=== PATIENT | male | born 1990 | race African-American/Black ===

== ENCOUNTER 2019-02-21 12:53 | Emergency (ER) | payer OTHER, MEDICAID ==
[~2019-02-21] VITALS: Ht 188 cm; Wt 111.0 kg
[2019-02-21 13:21] VITALS: BP 130/65
[2019-02-21] MEDS ORDERED: AZITHROMYCIN 500 MG TABLET PO ONE (15:00)
[2019-02-21] MEDS ORDERED: LIDOCAINE HCL/EPINEPHRINE 1%-EPI 1:100,000 30 ML VIAL INFIL ONE (15:00)
[2019-02-21] MEDS ORDERED: CEFTRIAXONE SODIUM 250 MG/VIAL IM ONE (15:00)
[2019-02-21] MEDS ORDERED: LIDOCAINE HCL/EPINEPHRINE 1%-EPI 1:100,000 20 ML VIAL INFIL NR (15:15)
[2019-02-21 15:35] LABS: CLARITY URINE CLEAR (CLEAR); COLOR URINE YELLOW (YELLOW); KETONES URINE NEGATIVE (NEGATIVE); LEUKOCYTE ESTERASE URINE 2+ (NEGATIVE); NITRITE URINE NEGATIVE (NEGATIVE); OCCULT BLOOD URINE NEGATIVE (NEGATIVE); PROTEIN URINE NEGATIVE (NEGATIVE); SPECIFIC GRAVITY URINE 1.021 (1.005-1.030)
== END 2019-02-21 16:29 | disposition home or self-care (01) ==
LOC: ER 12:53
DX: A64 Unspecified sexually transmitted disease (principal); Z22.4 Carrier of infections with a predominantly sexual mode of transmission; R36.9 Urethral discharge, unspecified; F17.200 Nicotine dependence, unspecified, uncomplicated
CPT/HCPCS: 81003; 87077; 87086; 96372; 99283; J0696; J3490